=== PATIENT | female | born 1960 | race Caucasian/White ===

== ENCOUNTER → 2020-09-23 | Outpatient (CLI) | payer OTHER ==
[2020-09-23 19:30] LABS: Basophils # (A) 0.04 X 10*3/uL (0.00-0.10); Basophils % (A) 0.5 %; Eosinophils # (A) 0.05 X 10*3/uL (0.04-0.35); Eosinophils % (A) 0.6 %; HCT 41.5 % (37.2-46.3); HGB 13.4 g/dL (12.0-15.0); Lymphocytes # (A) 3.18 X 10*3/uL (0.90-5.00); Lymphocytes % (A) 40.3 %; MCH 28.5 pg (27.0-32.0); MCHC 32.3 g/dL (32.0-37.0); MCV 88.1 fL (80.0-97.0); Mean Platelet Volume 12.5 fL (9.5-12.2); Monocytes # (A) 0.94 X 10*3/uL (0.20-1.00); Monocytes % (A) 11.9 %; Neutrophils # (A) 3.67 X 10*3/uL (1.80-7.70); Neutrophils % (A) 46.6 %; Platelet Count 232 X 10*3/uL (140-440); RBC 4.71 X 10*6/uL (4.10-5.20); RDW 12.6 % (11.5-14.5); WBC 7.89 X 10*3/uL (4.50-10.00)
[2020-09-23 20:14] LABS: INR 1.22 (0.90-1.11); Prothrombin Time 13.1 sec (9.9-11.9)
[2020-09-24 05:00] LABS: African American GFR (CKD) 94.2 (60.0-200.0); Albumin 4.7 g/dL (3.80-4.90); Albumin/Globulin Ratio 1.88 (1.60-3.17); Anion Gap 14.9 mmol/L (4.00-12.00); BUN/Creat Ratio 12.5 Ratio (12.00-20.00); Calcium 9.9 mg/dL (8.7-10.3); Carbon Dioxide 23.1 mmol/L (21.6-31.8); Globulin 2.5 g/dL (1.6-3.3); Non-African American GFR(CKD) 81.3 (60.0-200.0); Potassium 4.5 mmol/L (3.5-5.5); Total Bilirubin 0.5 mg/dL (0.3-1.2); Total Protein 7.2 g/dL (6.2-8.2)
== END | disposition home or self-care (01) ==
LOC: LABWHC1 11:21
PROVIDERS: ATTEND Internal Medicine
DX: I10 Essential (primary) hypertension (principal); D64.9 Anemia, unspecified; K80.50 Calculus of bile duct without cholangitis or cholecystitis without obstruction; Z20.822 Contact with and (suspected) exposure to COVID-19
CPT/HCPCS: 80053; 85025; 85610; 36415; U0003

== ENCOUNTER 2022-05-19 17:04 | Emergency (ER) | payer MEDICARE, OTHER ==
[2022-05-19 17:22] LABS: Glucose,Whole Blood 128 mg/dL (70-110)
[2022-05-19] MEDS: PANTOPRAZOLE 40 MG/10 ML VIAL IVP ONE ×2 (17:39→19:21)
--- NOTE | 2022-05-19 18:04 | XR ---
EXAMINATION TYPE: XR chest 1V portable DATE OF EXAM: 05/19/2022 COMPARISON: NONE HISTORY: Respiratory failure TECHNIQUE: Single view FINDINGS: Endotracheal tube is at the origin of the right mainstem bronchus. There is nasogastric tub e with the tip in the distal stomach. No heart failure. Heart size is normal. No pleural effusion or pneumothorax. IMPRESSION: Endotracheal tube is low and should be pulled back 3 to 4 cm. No cardiopulmonary disease.
[2022-05-19 18:13] LABS: INR 1.8 (<1.2); Partial Thromboplastin Time 35.5 sec (22.0-30.0); Prothrombin Time 18.1 sec (9.0-12.0)
[2022-05-19 18:21] LABS: HCT 52.2 % (34.0-46.0); HGB 14.7 gm/dL (11.4-16.0); Hypochromasia Marked; MCH 27.5 pg (25.0-35.0); MCHC 28.1 g/dL (31.0-37.0); MCV 97.8 fL (80.0-100.0); Mean Platelet Volume 11.5; Platelet Count 200 k/uL (150-450); RBC 5.34 m/uL (3.80-5.40); RDW 13.7 % (11.5-15.5)
[2022-05-19 18:24] LABS: Albumin 3.2 g/dL (3.5-5.0); Calcium 9.6 mg/dL (8.4-10.2); Magnesium 2.9 mg/dL (1.6-2.3); Potassium 5.4 mmol/L (3.5-5.1); Total Bilirubin 1.8 mg/dL (0.2-1.3)
[2022-05-19 18:29] VITALS: BP 101/39
[2022-05-19 18:37] LABS: Lactic Acid, Venous 20.6 mmol/L (0.7-2.0)
--- NOTE | 2022-05-19 18:58 | ED ---
General Adult HPI - General Chief complaint: Cardiac Arrest/CPR Stated complaint: cardiac arrest Source: EMS, RN notes reviewed, old records reviewed Mode of arrival: EMS Limitations: physical limitation - History of Present Illness Initial comments: Patient is a 61-year-old female who presents as an active cardiac arrest. Per EMS, EMS was called and the patient yesterday however she was not transported apparently secondary to refusal. They were called today over concern for heart attack or stroke. Patient was found somewhat unresponsive at the scene. She wa s bradycardic at the scene with poor pulses. She lost pulses at the scene and they began CPR. IO was established. They successfully intubated the patient. She was found with dark emesis over her. EMS had no known past medical history. Transferred her here for further evaluation and continued treatment. EMS provided a total of 4 rounds of epi, as well as 3 shocks prior to hospital arrival. As they wheeled her into the resuscitation bay, there was a somewhat organized narrow complex rhythm with no palpable pulses. She presents for cardiopulmonary arrest. Total out of hospital downtime estimated to be 30- 35minutes per EMS. - Related Data Home Medications Medication Instructions Recorded Confirmed Acetaminophen-Codeine 300-30mg 1 tab PO QID PRN 07/21/17 07/21/17 [Tylenol w/codeine #3] Ergocalciferol (Vitamin D2) 50,000 unit PO Q14D 07/21/17 07/21/17 [Vitamin D2] Ferrous Sulfate [Iron (65 MG 325 mg PO DAILY 07/21/17 07/21/17 Elemental)] Folic Acid 1 mg PO DAILY 07/21/17 07/21/17 HYDROcodone/APAP 5-325MG [[place] 1 tab PO QID PRN 07/21/17 07/21/17 5-325] Metoprolol Tartrate [Lopressor] 50 mg PO BID 07/21/17 07/21/17 Miconazole 2% Vaginal Cream 1 applicator VAGINAL DAILY 07/21/17 07/21/17 [Monistat 7] Pantoprazole [Protonix] 40 mg PO DAILY 07/21/17 07/21/17 Sertraline [Zoloft] 50 mg PO DAILY 07/21/17 07/21/17 Previous Rx's Medication Instructions Recorded Cephalexin [Keflex] 500 mg PO TID #15 cap 12/04/17 Rivaroxaban [Xarelto] 15 mg PO BID #60 tab 07/25/17 Allergies Allergy/AdvReac Type Severity Reaction Status Date / Time bee pollen Allergy Swelling Verified 07/21/17 17:26 Review of Systems ROS Statement: Those systems with pertinent positive or pertinent negative responses have been documented in the HPI. ROS Other: All systems not noted in ROS Statement are negative. Past Medical History Past Medical History: Deep Vein Thrombosis (DVT), GERD/Reflux, Hypertension, Pulmonary Embolus (PE) History of Any Multi-Drug Resistant Organisms: None Reported Past Surgical History: Orthopedic Surgery Additional Past Surgical History / Comment(s): nasal sinus surgery Past Anesthesia/Blood Transfusion Reactions: No Reported Reaction Past Psychological History: Anxiety, Depression Past Alcohol Use History: None Reported Past Drug Use History: None Reported - Past Family History Father Family Medical History: Hypertension Additional Family Medical History / Comment(s): takes cardiac medication unsuure what for Mother Family Medical History: Hypertension General Exam - General Exam Comments Initial Comments: General: Patient is obese. Unresponsive. HEAD: Normal with no signs of head trauma. EYES: Pupils are 3-4 mm and fixed. No response to light. ENT: ET tube in place. Trachea midline. RESPIRATORY: Clear breath sounds with bagging bilaterally. C/V: Pulseless. Significant extremity edema. Mottling of all 4 extremities. Cold extremities. ABD: Abd is soft, nontender, nondistended EXT: No obvious deformities. SKIN: Patient appears to be covered in dirt. Mottling of all 4 extremity is. NEURO: Unresponsive Limitations: physical limitation Course Vital Signs 05/19/22 05/19/22 17:33 18:00 Blood Pressure 111/93 101/39 ABP, PAP, CO, CI - Last 8 Hours Arterial Blood Pressure 3/3 Arterial Blood Pressure 48/19 Arterial Blood Pressure 39/26 Procedures - Arterial Line No standard instances Consent Obtained: emergent situation Size (Gauge): 18 Technique Used: guide wire technique Post-Procedure: line sutured into place, dry sterile dressing placed Patient Tolerated Procedure: well, no complications Complications: none - Central Line Placement Right IJ Consent Obtained: emergent situation Patient Placed on Monitor/Pulse Ox: Yes MD Prep: mask, gown, gloves Central Line Prep: Chlorhexidine scrub Local Anesthesia Used: Lidocaine 1% Amount of Anesthesia Used (mls): 5 Ultrasound Used for Placement: Yes Central Line Lumen Inserted: triple Central Line Position: good blood return, all ports aspirated, flushed, capped, sutured in place with nylon Dressing Applied: Tegaderm Post Procedure X-Ray: tip of catheter in good position Patient Tolerated Procedure: well Complications: none Medical Decision Making - Medical Decision Making Patient arrived pulseless in trauma bay 2, with active CPR. Initial rhythm is PEA. CPR was resumed. Patient was immediately administered 1 epinephrine, one calcium amp, 1 bicarbonate amp, one D50 amp. ACLS was protocol was followed. Patient is already intubated and bagging well. Patient is difficult to palpate pulses in extremities. Patient is placed on the monitor, and has a narrow complex rhythm that appears organized. Ultrasound shows some organized cardiac activity, pulses seen on ultrasound. CPR, which was continued immediately upon arrival, was stopped. Blood pressures were adequate. She was tachycardic. Bagging easily by RT. EKG at this time showed a undefined narrow complex tachycardia. This is immediately post ROSC, and we will obtain an EKG as tachycardia improves. There are diffuse ischemic changes seen on EKG which is expected Immediately status post ROSC. Patient was given 2 fluid boluses as well as IV Protonix.. Patient is a difficult IV access. Decision was made to place a right IJ central line. OG tube was placed. Patient had approximately 100 mL of dark emesis return from OG suction. Chest x-ray was obtained following central line placement as well, it did show a low endotracheal tube near the right mainstem bronchus. The G-tube was in place as well. Patient was placed on a Levophed drip. Left wrist arterial line was placed. Patient began having decreasing heart rates again. Blood pressures were lost. CPR was once again started. This occurred at approximate 1750. Patient showed V. fib on the monitor 3 times and 200 J of shocks were administered each time with no change in rhythm. Patient was administered an additional 3 doses of epinephrine, amp of calcium, amp of bicarb. At this point, patient's total down time was well over 45 minutes out of hospital and in-hospital combined. After discussion with resuscitation staff, the decision was made to cease resuscitation at this time. There is no further return of spontaneous circulation. Time of was called at 1800. Patient's sister presented to the ER, Stacy Barrera. I updated her. She expressed understanding and I answered all questions that she had. I contacted the medical coder, Taryn. Patient [place] [id number]. Patient [place] [facility] [place] has . Laboratory studies did return from blood work sent from the central line. Patient a leukocytosis of 24. Coags were elevated. Electrolytes were abnormal including hyperkalemia, hypernatremia, an AK eye. Patient had a lactic acid of 20. Patient had severely elevated LFTs. Troponin was elevated. All findings likely secondary to her cardiac arrest. - Lab Data Result diagrams: 05/19/22 17:47 05/19/22 17:47 Lab Results 05/19/22 05/19/22 05/19/22 Range/Units 17:11 17:40 17:47 WBC (3.8-10.6) k/uL RBC (3.80-5.40) m/uL Hgb (11.4-16.0) gm/dL Hct (34.0-46.0) % MCV (80.0-100.0) fL MCH (25.0-35.0) pg MCHC (31.0-37.0) g/dL RDW (11.5-15.5) % Plt Count (150-450) k/uL MPV Neutrophils % (Manual) % Band Neuts % (Manual) % Lymphocytes % (Manual) % Monocytes % (Manual) % Metamyelocytes % % Neutrophils # (Manual) (1.3-7.7) k/uL Lymphocytes # (Manual) (1.0-4.8) k/uL Monocytes # (Manual) (0-1.0) k/uL Metamyelocytes # (Man) (0) k/uL Nucleated RBCs (0-0) /100 WBC Manual Slide Review Hypochromasia PT (9.0-12.0) sec INR (<1.2) APTT (22.0-30.0) sec Sodium (137-145) mmol/L Potassium (3.5-5.1) mmol/L Chloride (98-107) mmol/L Carbon Dioxide (22-30) mmol/L Anion Gap mmol/L BUN (7-17) mg/dL Creatinine (0.52-1.04) mg/dL Est GFR (CKD-EPI)AfAm (>60 ml/min/1.73 sqM) Est GFR (CKD-EPI)NonAf (>60 ml/min/1.73 sqM) Glucose (74-99) mg/dL POC Glucose (mg/dL) 128 H (70-110) mg/dL POC Glu Attending Physician ID Ty Holden Plasma Lactic Acid Ruiz (0.7-2.0) mmol/L Calcium (8.4-10.2) mg/dL Ionized Calcium Lakeisha (4.5-5.3) mg/dL Magnesium (1.6-2.3) mg/dL Total Bilirubin (0.2-1.3) mg/dL AST (14-36) U/L ALT (4-34) U/L Alkaline Phosphatase (38-126) U/L Ammonia (<30) umol/L Creatine Kinase (30-135) U/L Troponin I (0.000-0.034) ng/mL NT-Pro-B Natriuret Pep pg/mL Total Protein (6.3-8.2) g/dL Albumin (3.5-5.0) g/dL TSH (0.465-4.680) mIU/L Blood Type B Positive Blood Type Confirm B Positive Blood Type Recheck No Previous Record Bld Type Recheck Status CABO Indicated Antibody Screen NEGATIVE Spec Expiration Date 05/22/2022234605/19/22 05/19/22 05/19/22 Range/Units 17:47 17:47 17:47 WBC 24.3 H (3.8-10.6) k/uL RBC 5.34 (3.80-5.40) m/uL Hgb 14.7 (11.4-16.0) gm/dL Hct 52.2 H (34.0-46.0) % MCV 97.8 (80.0-100.0) fL MCH 27.5 (25.0-35.0) pg MCHC 28.1 L (31.0-37.0) g/dL RDW 13.7 (11.5-15.5) % Plt Count 200 (150-450) k/uL MPV 11.5 Neutrophils % (Manual) 59 % Band Neuts % (Manual) 4 % Lymphocytes % (Manual) 32 % Monocytes % (Manual) 5 % Metamyelocytes % 1 % Neutrophils # (Manual) 15.30 H (1.3-7.7) k/uL Lymphocytes # (Manual) 7.78 H (1.0-4.8) k/uL Monocytes # (Manual) 1.22 H (0-1.0) k/uL Metamyelocytes # (Man) 0.24 H (0) k/uL Nucleated RBCs 3 H (0-0) /100 WBC Manual Slide Review Performed Hypochromasia Marked PT (9.0-12.0) sec INR (<1.2) APTT (22.0-30.0) sec Sodium 156 H (137-145) mmol/L Potassium 5.4 H (3.5-5.1) mmol/L Chloride 114 H (98-107) mmol/L Carbon Dioxide 8 L* (22-30) mmol/L Anion Gap 34 mmol/L BUN 47 H (7-17) mg/dL Creatinine 3.26 H (0.52-1.04) mg/dL Est GFR (CKD-EPI)AfAm 17 (>60 ml/min/1.73 sqM) Est GFR (CKD-EPI)NonAf 15 (>60 ml/min/1.73 sqM) Glucose 186 H (74-99) mg/dL POC Glucose (mg/dL) (70-110) mg/dL POC Glu Attending Physician ID Plasma Lactic Acid Ruiz 20.6 H* (0.7-2.0) mmol/L Calcium 9.6 (8.4-10.2) mg/dL Ionized Calcium Lakeisha 5.0 (4.5-5.3) mg/dL Magnesium 2.9 H (1.6-2.3) mg/dL Total Bilirubin 1.8 H (0.2-1.3) mg/dL AST 3322 H (14-36) U/L ALT 1510 H (4-34) U/L Alkaline Phosphatase 64 (38-126) U/L Ammonia 158 H (<30) umol/L Creatine Kinase 369 H (30-135) U/L Troponin I (0.000-0.034) ng/mL NT-Pro-B Natriuret Pep pg/mL Total Protein 6.0 L (6.3-8.2) g/dL Albumin 3.2 L (3.5-5.0) g/dL TSH 7.300 H (0.465-4.680) mIU/L Blood Type Blood Type Confirm Blood Type Recheck Bld Type Recheck Status Antibody Screen Spec Expiration Date 05/19/22 05/19/22 05/19/22 Range/Units 17:47 17:47 17:47 WBC (3.8-10.6) k/uL RBC (3.80-5.40) m/uL Hgb (11.4-16.0) gm/dL Hct (34.0-46.0) % MCV (80.0-100.0) fL MCH (25.0-35.0) pg MCHC (31.0-37.0) g/dL RDW (11.5-15.5) % Plt Count (150-450) k/uL MPV Neutrophils % (Manual) % Band Neuts % (Manual) % Lymphocytes % (Manual) % Monocytes % (Manual) % Metamyelocytes % % Neutrophils # (Manual) (1.3-7.7) k/uL Lymphocytes # (Manual) (1.0-4.8) k/uL Monocytes # (Manual) (0-1.0) k/uL Metamyelocytes # (Man) (0) k/uL Nucleated RBCs (0-0) /100 WBC Manual Slide Review Hypochromasia PT 18.1 H (9.0-12.0) sec INR 1.8 H (<1.2) APTT 35.5 H (22.0-30.0) sec Sodium (137-145) mmol/L Potassium (3.5-5.1) mmol/L Chloride (98-107) mmol/L Carbon Dioxide (22-30) mmol/L Anion Gap mmol/L BUN (7-17) mg/dL Creatinine (0.52-1.04) mg/dL Est GFR (CKD-EPI)AfAm (>60 ml/min/1.73 sqM) Est GFR (CKD-EPI)NonAf (>60 ml/min/1.73 sqM) Glucose (74-99) mg/dL POC Glucose (mg/dL) (70-110) mg/dL POC Glu Attending Physician ID Plasma Lactic Acid Ruiz (0.7-2.0) mmol/L Calcium (8.4-10.2) mg/dL Ionized Calcium Lakeisha (4.5-5.3) mg/dL Magnesium (1.6-2.3) mg/dL Total Bilirubin (0.2-1.3) mg/dL AST (14-36) U/L ALT (4-34) U/L Alkaline Phosphatase (38-126) U/L Ammonia (<30) umol/L Creatine Kinase (30-135) U/L Troponin I 0.137 H* (0.000-0.034) ng/mL NT-Pro-B Natriuret Pep 3920 pg/mL Total Protein (6.3-8.2) g/dL Albumin (3.5-5.0) g/dL TSH (0.465-4.680) mIU/L Blood Type Blood Type Confirm Blood Type Recheck Bld Type Recheck Status Antibody Screen Spec Expiration Date - EKG Data -: EKG Interpreted by Me EKG Comments: 12-lead Electrocardiogram Interpretation Note EKG was reviewed and interpreted by myself. 12-lead ECG performed at 1709 is interpreted by me as revealing organized narrow complex rhythm status post r eturn of spontaneous circulation at a rate of 171 beats per minute. Left axis deviation. QRS duration is 125 ms, QTc is 10/30/1975 seconds.. There are diffuse ischemic changes expected with cardiopulmonary arrest. No clear pattern at this time.. R wave progression across the precordium was satisfactory. Critical Care Time Critical Care Time: Yes Total Critical Care Time: 35 Critical Care Time: Upon my evaluation, this patient had a high probability of imminent or life-threatening deterioration due to cardio pulmonary arrest, shock, which required my direct attention, intervention, and personal management. I have personally provided 35 minutes of critical care time exclusive of time spent on separately billable procedures. Time includes review of laboratory data, radiology results, discussion with consultants, and monitoring for potential decompensation. Interventions were performed as documented in my note. Disposition Clinical Impression: , Cardiopulmonary arrest Disposition: Referrals: None,Stated [Primary Care Provider] - 1-2 days Time of Disposition: 18:00 Preliminary Cause of : Cardiac arrest
[2022-05-19 19:57] LABS: Band Neutrophils % 4 %; Lymphocytes # (M) 7.78 k/uL (1.0-4.8); Metamyelocytes # (M) 0.24 k/uL (0); Metamyelocytes % 1 %; Monocytes # (M) 1.22 k/uL (0-1.0); Neutrophils % (M) 59 %; Nucleated Red Blood Cells 3 /100 WBC (0-0); Total Cells Counted 200; WBC 24.3 k/uL (3.8-10.6)
== END 2022-05-19 21:14 | disposition expired ==
LOC: EC 17:04
DX: I46.9 Cardiac arrest, cause unspecified (principal); I10 Essential (primary) hypertension; Z79.83 Long term (current) use of bisphosphonates; K21.9 Gastro-esophageal reflux disease without esophagitis; Z91.030 Bee allergy status
CPT/HCPCS: 99291; 96374; 36415; 86900; 86901; 83880; 80053; 82330; 82140; 82550; 83605; 83735; 84443; 84484; 85025; 85610; 85730; 86850; 71045; 36556; 92950; 31500; C9113